=== PATIENT | male | born 1980 | race Caucasian/White ===

== ENCOUNTER 2020-04-23 16:56 | Outpatient (CLI) | payer OTHER, SELFPAY ==
[2020-04-23 17:48] LABS: Add Urine Microscopic? NO; Appearance Urine Clear (Clear); Bilirubin Urine Negative (Negative); Blood Urine Negative (Negative); Color Urine Colorless (Yellow); Glucose Urine UA Negative (Negative); Ketones Urine Negative (Negative); Leukocyte Esterase Ur Negative LEU/UL (Negative); Nitrate Urine Negative (Negative); Protein Urine Negative (Negative); Urobilinogen Urine Negative mg/dL (<2.0)
[2020-04-23 17:55] LABS: Specific Grav Ur 1.004 (1.001-1.035)
== END 2020-04-23 16:57 | disposition home or self-care (01) ==
LOC: ANHLAB 16:57
PROVIDERS: PCP Internal Medicine; Visit Provider Internal Medicine
DX: R30.0 Dysuria (principal)
CPT/HCPCS: 81003

== ENCOUNTER 2020-05-29 07:48 | Outpatient (CLI) | payer OTHER, SELFPAY ==
[2020-05-29 08:14] LABS: Add Urine Microscopic? NO; Appearance Urine Clear (Clear); Bilirubin Urine Negative (Negative); Blood Urine Negative (Negative); Color Urine Straw (Yellow); Glucose Urine UA Negative (Negative); Ketones Urine Negative (Negative); Leukocyte Esterase Ur Negative LEU/UL (Negative); Nitrate Urine Negative (Negative); Protein Urine Negative (Negative); Specific Grav Ur 1.011 (1.001-1.035); Urobilinogen Urine Negative mg/dL (<2.0)
[2020-05-29 08:23] LABS: Alanine Aminotransferase 25 U/L (4-50); Albumin Level 4.7 g/dL (3.5-5.1); Alkaline Phosphatase 48 U/L (38-126); Anion Gap 7 mmol/L (8-16); Aspartate Amino Transferase 26 U/L (17-59); Bilirubin,Total 0.5 mg/dL (0.2-1.3); Blood Urea Nitrogen 13 mg/dL (9-20); Calcium 9.4 mg/dL (8.4-10.2); Carbon Dioxide 31 mmol/L (22-30); Chloride 102 mmol/L (98-107); Cholesterol 199 mg/dL (0-200); Estimated Glomerular Filt Rate > 60; Glucose 101 mg/dL (75-110); HDL Direct 51 mg/dL; Potassium 4.4 mmol/L (3.4-5.0); Sodium 140 mmol/L (137-145); Triglycerides 98 mg/dL (<150)
[2020-05-29 08:33] LABS: LDL Cholesterol Direct 115 mg/dL
[2020-05-29 08:53] LABS: Prostate Specific Antigen 0.6 ng/mL (< OR = 4.0)
== END 2020-05-29 07:49 | disposition home or self-care (01) ==
PROVIDERS: PCP Internal Medicine; Visit Provider Internal Medicine
DX: R03.0 Elevated blood-pressure reading, without diagnosis of hypertension (principal); Z13.6 Encounter for screening for cardiovascular disorders; Z13.220 Encounter for screening for lipoid disorders; R35.1 Nocturia
CPT/HCPCS: 36415; 80053; 80061; 81003; 84153

== ENCOUNTER 2020-10-22 09:47 | Emergency (ER) | payer OTHER, SELFPAY ==
--- NOTE | ~2020-10-22 | XR_ITS ---
XR ankle RT min 3V 10/22/2020 10:12 INDICATION: Right ankle pain PROCEDURE: 4 views right ankle COMPARISON: No prior studies for comparison. FINDINGS: Fracture, dislocation or subluxation is not identified. The soft tissues appear within norm al limits. No foreign bodies are identified. IMPRESSION: 1: NO ACUTE BONE OR JOINT ABNORMALITY IDENTIFIED. Reviewed, dictated and finalized at location A.
--- NOTE | ~2020-10-22 | XR_ITS ---
XR foot RT min 3V 10/22/2020 10:12 INDICATION: Right foot pain PROCEDURE: 4 views right foot COMPARISON: No prior studies for comparison. FINDINGS: Fracture, dislocation or subluxation is not identified. Lisfranc joint intact. The soft tis sues appear within normal limits. No foreign bodies are identified. IMPRESSION: 1: NO ACUTE BONE OR JOINT ABNORMALITY IDENTIFIED. Reviewed, dictated and finalized at location A.
[2020-10-22 10:05] VITALS: BP 150/96; PULSE 89; RESP 18; TEMP 36.7; O2SAT 99
[2020-10-22 11:16] VITALS: BP 132/90; PULSE 77; RESP 18; O2SAT 98
--- NOTE | 2020-10-22 11:35 | ED.GENADULT ---
HPI - General Adult General Chief complaint: Extremity Injury, Lower Stated complaint: R FOOT INJURY Time Seen by Provider: 10/22/20 10:36 Source: patient and RN notes reviewed Mode of arrival: ambulatory Limitations: no limitations History of Present Illness HPI narrative: Patient is a 40-year-old male who presents with right ankle pain localized to the dorsal surface of the midfoot had misstepped off a ladder day prior and is continued to have aching pain worse with activity and weightbearing has been able to bear weight denies other injuries or complaints presents in no distress does not appear uncomfortable Related Data Allergies Allergy/AdvReac Type Severity Reaction Status Date / Time ciprofloxacin [From Cipro] Allergy Mild Blister Verified 10/22/20 10:33 codeine Allergy Unknown Vomiting Verified 10/22/20 10:33 Sulfa (Sulfonamide Allergy Swelling Verified 10/22/20 10:33 Antibiotics) of Lip/Tongue/Throat Review of Systems Review of Systems: All systems reviewed & are unremarkable except as noted in HPI and below PMFSH Social History Social History Smoking packs per day: 0 Smoking cigarettes per day: 0.0 Years smoked: 0 Smoking pack-years: 0.00 Smoking status: Never smoker Alcohol intake: current Drinks per week: 3 Gender identity (if verbalized by the patient): Male Sexual Orientation (if Verbalized by the Patient): Straight or Heterosexual Exam Narrative: Exam Narrative: GENERAL: Well-appearing, well-nourished, and in no acute distress. HEAD: Normocephalic, atraumatic. EYES: PERRLA and EOMI. ENT: Nares clear, no rhinorrhea or epistaxis. Mucous membranes moist. CHEST: Clear to auscultation. No respiratory distress. No wheezes rales or rhonchi HEART: Regular rate and rhythm. No murmur heard. Normal peripheral pulses. ABDOMEN: Soft, nontender, nondistended, normal active bowel sounds. EXTREMITIES: Normal range of motion. No edema. Tenderness over the dorsal right lateral midfoot no deformities noted remainder of ankle and foot nontender SKIN: Warm, dry, no rash. NEURO: No focal deficits. Alert and oriented x3. Neurovascularly intact PSYCH: Normal mood and affect. Course Course Emergency Course: Patient evaluated had x-rays which were unremarkable but he referred to specialist and primary care for further evaluation placed on crutches and Harish wrap provided with reasons to return Vital Signs Vital signs: Vital Signs Temperature 98.0 F 10/22/20 10:05 Pulse Rate 89 10/22/20 10:05 Respiratory Rate 18 10/22/20 10:05 Blood Pressure 150/96 H 10/22/20 10:05 Pulse Oximetry 99 10/22/20 10:05 Temperature 98.0 F 10/22/20 10:05 Pulse Rate 77 10/22/20 11:16 Respiratory Rate 18 10/22/20 11:16 Blood Pressure 132/90 10/22/20 11:16 Pulse Oximetry 98 10/22/20 11:16 Medical Decision Making MDM Narrative Medical decision making narrative: Patients injury or pain is consistent with musculoskeletal etiology. No signs of neurological or vascular compromise on exam. Compartments and tisues are soft without signs of compartment syndrome. Pain is felt appropriate for further evaluation on an outpatient basis. Vital Signs Vital Signs: Vital Signs Temperature 98.0 F 10/22/20 10:05 Pulse Rate 89 10/22/20 10:05 Respiratory Rate 18 10/22/20 10:05 Blood Pressure 150/96 H 10/22/20 10:05 Pulse Oximetry 99 10/22/20 10:05 Temperature 98.0 F 10/22/20 10:05 Pulse Rate 77 10/22/20 11:16 Respiratory Rate 18 10/22/20 11:16 Blood Pressure 132/90 10/22/20 11:16 Pulse Oximetry 98 10/22/20 11:16 Imaging Data Radiologist's impression: ITS Impressions Ankle X-Ray 10/22/20 10:19 IMPRESSION: 1: NO ACUTE BONE OR JOINT ABNORMALITY IDENTIFIED. Foot X-Ray 10/22/20 10:34 IMPRESSION: 1: NO ACUTE BONE OR JOINT ABNORMALITY IDENTIFIED. Discharge Plan Discharge Cl
== END 2020-10-22 11:48 | disposition home or self-care (01) ==
PROVIDERS: Emergency Provider Emergency Medicine; PCP Internal Medicine
DX: S93.401A Sprain of unspecified ligament of right ankle, initial encounter (principal); X50.9XXA Other and unspecified overexertion or strenuous movements or postures, initial encounter
CPT/HCPCS: 73610; 73630; 99283

== ENCOUNTER 2020-11-18 08:04 | Outpatient (CLI) | payer OTHER, SELFPAY ==
--- NOTE | ~2020-11-18 | MR_ITS ---
EXAMINATION: MR foot RT wo con DATE: 11/18/2020 09:18 INDICATION: Twisting injury post fall from ladder presenting with pain at the lateral right mid/hindf oot. TECHNIQUE: Magnetic resonance imaging (MRI) of the right mid/hindfoot and ankle was performed without intravenous contrast. Sequences included sagittal, coronal, and axial proton-density weighted fast s pin echo without and with fat saturation. COMPARISON: Radiograph dated 10/22/2020 FINDINGS: Medial ankle ligaments: Deep and superficial deltoid ligaments as well as the spring ligament are normal. Lateral ankle ligaments: The anterior and posterior inferior tibiofibular ligaments are normal. The anterior talofibular, calc aneofibular and posterior talofibular ligaments are normal. Tendons: Achilles tendon is normal. The peroneus longus tendon is normal. Mild tendinopathy and longitudinal s plit tear of the peroneus brevis tendon. The tibialis anterior and extensor hallucis longus and exten sor digitorum longus tendons are normal. The tibialis posterior, flexor digitorum longus and flexor h allucis longus tendons are normal. Plantar fascia: Plantar aponeurosis is normal. Bones/other: Marrow edema along the plantar aspect of the distal cuboid without evident fracture line consistent w ith bone contusion. Minimal likely degenerative subarticular edema versus cystic change at both sides of the articulation between the medial and mid cuneiforms and at the mid cuneiform along its articul ation with the lateral cuneiform. Fluid: Physiologic amount of fluid in the joint spaces. No abnormal fluid collections. IMPRESSION: 1. Marrow edema without fracture line at the plantar aspect of the cuboid suggesting a bone contusion . 2. Mild tendinopathy and longitudinal split tearing of the peroneus brevis tendon. 3. 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 Reviewed, dictated and finalized at location B. IMPRESSION: 1. Marrow edema without fracture line at the plantar aspect of the cuboid sugge sting a bone contusion. 2. Mild tendinopathy and longitudinal split tearing of the peroneus brevis tend on. 3. 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
== END 2020-11-18 08:05 | disposition home or self-care (01) ==
PROVIDERS: PCP Internal Medicine; Visit Provider Internal Medicine
DX: S99.929A Unspecified injury of unspecified foot, initial encounter (principal); X58.XXXA Exposure to other specified factors, initial encounter; M19.071 Primary osteoarthritis, right ankle and foot
CPT/HCPCS: 73718

== ENCOUNTER 2020-11-27 19:49 | Emergency (ER) | payer OTHER, SELFPAY ==
--- NOTE | 2020-11-27 19:56 | PC.NURSE ---
pt ambulatory with steady gait to intake desk. pt verbalized that he was going to try [facility] as the er waiting room looked too busy.
--- NOTE | 2020-11-27 22:21 | PC.NURSE ---
first call for a room, no answer
== END 2020-11-27 20:10 | disposition left against medical advice (07) ==
LOC: ANHED 20:03
DX: Z53.21 Procedure and treatment not carried out due to patient leaving prior to being seen by health care provider (principal)
CPT/HCPCS: 99199

== ENCOUNTER 2021-03-26 15:30 | Outpatient (RCR) | payer OTHER, SELFPAY ==
[2021-03-26] MEDS: ACETAMINOPHEN 325 MG TABLET 650 MG PO (15:42)
[2021-03-26] MEDS: diphenhydrAMINE HCl CAP 25 MG CAPSULE PO (15:44)
[2021-03-26] MEDS: FAMOTIDINE 20 MG TABLET PO (15:45)
[2021-03-26 15:46] VITALS: BP 139/81; PULSE 97; RESP 16; TEMP 36.4; O2SAT 100
[2021-03-26 16:54] VITALS: BP 122/72
== END 2021-03-26 17:00 ==
LOC: AMCINF 15:30
PROVIDERS: PCP Nurse Practitioner; Referring Provider Nurse Practitioner; Visit Provider Internal Medicine Hematology & Oncology
DX: U07.1 COVID-19 (principal)
CPT/HCPCS: A9270; M0243; Q0244

== ENCOUNTER 2021-04-08 08:01 | Outpatient (CLI) | payer OTHER, SELFPAY ==
[2021-04-08 09:04] LABS: Add Urine Microscopic? NO; Appearance Urine Clear (Clear); Bilirubin Urine Negative (Negative); Blood Urine Negative (Negative); Color Urine Yellow (Yellow); Glucose Urine UA Negative (Negative); Ketones Urine Negative (Negative); Leukocyte Esterase Ur Negative LEU/UL (Negative); Nitrate Urine Negative (Negative); Protein Urine Negative (Negative); Specific Grav Ur 1.005 (1.001-1.035); Urobilinogen Urine Negative mg/dL (<2.0)
== END 2021-04-08 08:02 | disposition home or self-care (01) ==
LOC: ANHLAB 08:04
PROVIDERS: PCP Nurse Practitioner; Visit Provider Internal Medicine
DX: R30.0 Dysuria (principal)
CPT/HCPCS: 81003

== ENCOUNTER 2021-06-17 12:27 | Outpatient (CLI) | payer OTHER, SELFPAY ==
--- NOTE | ~2021-06-17 | US_ITS ---
EXAMINATION:US venous doppler LE RT INDICATION:Right knee pain TECHNIQUE: Multiple grayscale, color flow and Doppler images of the right lower extremity deep venous systems were obtained and reviewed. COMPARISON:01/29/2016 FINDINGS: The common femoral, superficial femoral and popliteal veins demonstrate normal respiratory variation, augmentation and compressibility. Color flow is also seen within the posterior tibial, pe roneal, greater saphenous and profunda veins. IMPRESSION: 1: No lower extremity deep venous thrombosis. Reviewed, dictated and finalized at location A.
== END 2021-06-17 12:28 | disposition home or self-care (01) ==
PROVIDERS: PCP Nurse Practitioner; Visit Provider Internal Medicine Cardiovascular Disease
DX: M25.561 Pain in right knee (principal)
CPT/HCPCS: 93971

== ENCOUNTER 2021-10-01 07:07 | Outpatient (CLI) | payer OTHER, SELFPAY ==
[2021-10-01 08:52] LABS: Cholesterol 204 mg/dL (0-200); HDL Direct 57 mg/dL; Triglycerides 78 mg/dL (<150)
[2021-10-01 09:03] LABS: LDL Cholesterol Direct 98 mg/dL
== END 2021-10-01 07:08 | disposition home or self-care (01) ==
PROVIDERS: PCP Internal Medicine; Visit Provider Internal Medicine Cardiovascular Disease
DX: E78.5 Hyperlipidemia, unspecified (principal)
CPT/HCPCS: 36415; 80061

== ENCOUNTER 2021-11-29 07:41 | Outpatient (CLI) | payer OTHER, SELFPAY ==
[2021-11-29 08:18] LABS: Alanine Aminotransferase 25 U/L (6-50); Albumin Level 5.1 g/dL (3.5-5.1); Alkaline Phosphatase 48 U/L (38-126); Anion Gap 14 mmol/L (8-16); Aspartate Amino Transferase 25 U/L (17-59); Bilirubin,Total 0.5 mg/dL (0.2-1.3); Blood Urea Nitrogen 13 mg/dL (9-20); Calcium 9.3 mg/dL (8.4-10.2); Carbon Dioxide 32 mmol/L (22-30); Chloride 97 mmol/L (98-107); Cholesterol 192 mg/dL (0-200); Estimated Glomerular Filt Rate > 60; Glucose 107 mg/dL (65-110); HDL Direct 62 mg/dL; Potassium 4.8 mmol/L (3.4-5.0); Sodium 143 mmol/L (137-145); Triglycerides 73 mg/dL (<150)
[2021-11-29 08:29] LABS: LDL Cholesterol Direct 84 mg/dL
[2021-11-29 08:40] LABS: Vitamin D 25 Hydroxy 54.1 ng/mL
== END 2021-11-29 07:42 | disposition home or self-care (01) ==
LOC: ANHLAB 07:43
PROVIDERS: PCP Internal Medicine; Visit Provider Nurse Practitioner
DX: E78.5 Hyperlipidemia, unspecified (principal); E55.9 Vitamin D deficiency, unspecified
CPT/HCPCS: 36415; 80053; 80061; 82306

== ENCOUNTER 2021-12-23 12:19 | Outpatient (CLI) | payer OTHER, SELFPAY ==
[2021-12-23 12:51] LABS: Appearance Urine Clear (Clear); Bilirubin Urine Negative (Negative); Blood Urine Trace-intact (Negative); Color Urine Yellow (Yellow); Glucose Urine UA Negative (Negative); Ketones Urine Negative (Negative); Leukocyte Esterase Ur Negative LEU/UL (Negative); Nitrate Urine Negative (Negative); Protein Urine Negative (Negative); Specific Grav Ur 1.015 (1.001-1.035); Urobilinogen Urine 0.2 mg/dL (<2.0); pH Urine 6.5 (5.0-9.0)
[2021-12-23 12:57] LABS: Mucus Urine Rare /lpf; WBC Urine 0-3 /hpf
[2021-12-23 13:13] LABS: Add Urine Microscopic? YES
== END 2021-12-23 12:20 | disposition home or self-care (01) ==
LOC: ANHLAB 12:20
PROVIDERS: PCP Internal Medicine; Visit Provider Internal Medicine
DX: R30.0 Dysuria (principal)
CPT/HCPCS: 81001

== ENCOUNTER 2022-01-02 07:30 | Outpatient (CLI) | payer OTHER, SELFPAY ==
[2022-01-02 07:45] LABS: Basophils Absolute Auto 0.1 K/mm3 (0.0-0.1); Basophils Percent Auto 1.3 % (0.2-1.2); Eosinophils Absolute Auto 0.1 K/mm3 (0-0.3); Eosinophils Percent Auto 2.5 % (0-4.4); Hematocrit 42.2 % (42.0-52.0); Hemoglobin 14.5 g/dL (14.0-18.0); Immature Granulocyte Absolute 0.01 K/mm3 (0.00-0.031); Immature Granulocyte Percent A 0.2 % (0-0.5); Lymphocytes Absolute Auto 2.09 K/mm3 (0.9-3.2); Lymphocytes Percent Auto 44.2 % (18.3-44.2); Mean Corpuscular HGB Conc 34.4 g/dl (32-36); Mean Corpuscular Volume 93.2 fl (80-100); Mean Platelet Volume 8.9 fl (7.4-10.4); Monocytes Absolute Auto 0.3 K/mm3 (0.1-0.6); Monocytes Percent Auto 6.3 % (2.6-8.5); Neutrophils Absolute Auto 2.2 K/mm3 (1.3-6.7); Neutrophils Percent Auto 45.5 % (45.5-73.1); Platelet Count Result 315 k/mm3 (150-375); Red Blood Count 4.53 M/mm3 (4.6-6.20); Red Cell Distribution Width 11.8 % (11.5-14.5); White Blood Count 4.7 K/mm3 (4.5-10.0)
[2022-01-02 08:35] LABS: Thyroid Stimulating Hormone 0.899 uIU/mL (0.465-4.680)
== END 2022-01-02 07:31 | disposition home or self-care (01) ==
LOC: ANHLAB 07:32
PROVIDERS: PCP Internal Medicine; Visit Provider Internal Medicine
DX: R63.4 Abnormal weight loss (principal)
CPT/HCPCS: 36415; 84443; 85025

== ENCOUNTER 2022-05-12 07:45 | Outpatient (CLI) | payer OTHER, SELFPAY ==
[2022-05-12 08:43] LABS: Thyroid Stimulating Hormone 0.516 uIU/mL (0.465-4.680)
[2022-05-12 09:24] LABS: Free T4 Free Thyroxine 1.22 ng/mL (0.78-2.19)
[2022-05-16 04:26] LABS: Thyroid Peroxidase Antibodies <1 IU/mL (<9)
== END 2022-05-12 07:46 | disposition home or self-care (01) ==
LOC: ANHLAB 07:46
PROVIDERS: PCP Internal Medicine; Visit Provider Nurse Practitioner
DX: R00.2 Palpitations (principal)
CPT/HCPCS: 36415; 84439; 84443; 86376

== ENCOUNTER 2023-02-22 08:44 | Outpatient (CLI) | payer OTHER, SELFPAY ==
--- NOTE | ~2023-02-22 | XR_ITS ---
Right Knee Technique: AP, lateral, and sunrise views were obtained. Clinical History: Pain Findings: No fracture or dislocation is seen. Osseous alignment is anatomic. Joint spaces are preserv ed without degenerative or erosive change. Soft tissues are unremarkable. No joint effusion is seen. Impression: Unremarkable right knee radiographs. Reviewed, dictated and finalized at location . R INSTALLATION SUPERVISOR Impression: Unremarkable right knee radiographs.
--- NOTE | ~2023-02-22 | XR_ITS ---
Left foot Technique: AP, oblique, and lateral views were obtained. Clinical History: Fifth digit injury Findings: No acute fracture or dislocation is seen. Osseous alignment is anatomic. Joint spaces are p reserved without erosive or degenerative change. Soft tissues are unremarkable. Impression: Unremarkable left foot radiographs. Reviewed, dictated and finalized at [facility]. TRAINER Impression: Unremarkable left foot radiographs.
== END 2023-02-22 08:45 | disposition home or self-care (01) ==
LOC: ANHIMG 08:47
PROVIDERS: PCP Nurse Practitioner Family; Visit Provider Nurse Practitioner Family
DX: S99.922A Unspecified injury of left foot, initial encounter (principal); S89.91XA Unspecified injury of right lower leg, initial encounter; X58.XXXA Exposure to other specified factors, initial encounter
CPT/HCPCS: 73562; 73620

== ENCOUNTER 2023-09-15 08:42 | Outpatient (CLI) | payer OTHER, SELFPAY ==
[2023-09-15 09:20] LABS: Hematocrit 42.5 % (42.0-52.0); Hemoglobin 14.7 g/dL (14.0-18.0); Mean Corpuscular HGB Conc 34.6 g/dl (32-36); Mean Corpuscular Hemoglobin 31.7 pg (26-34); Mean Corpuscular Volume 91.6 fl (80-100); Mean Platelet Volume 9.1 fl (7.4-10.4); Platelet Count Result 285 k/mm3 (150-375); Red Blood Count 4.64 M/mm3 (4.6-6.20); Red Cell Distribution Width 11.6 % (11.5-14.5)
[2023-09-15 09:35] LABS: Alanine Aminotransferase 21 U/L (6-50); Albumin Level 4.9 g/dL (3.5-5.1); Alkaline Phosphatase 49 U/L (38-126); Anion Gap 6 mmol/L (4-12); Aspartate Amino Transferase 23 U/L (17-59); Bilirubin,Total 0.6 mg/dL (0.2-1.3); Blood Urea Nitrogen 15 mg/dL (9-20); Calcium 9.5 mg/dL (8.4-10.2); Carbon Dioxide 31 mmol/L (22-30); Chloride 104 mmol/L (98-107); Cholesterol 197 mg/dL (0-200); Estimated Glomerular Filt Rate > 60; Glucose 92 mg/dL (65-110); HDL Direct 62 mg/dL; Potassium 4.8 mmol/L (3.4-5.0); Sodium 141 mmol/L (137-145); Triglycerides 89 mg/dL (<150)
[2023-09-15 09:46] LABS: LDL Cholesterol Direct 118 mg/dL
[2023-09-15 09:57] LABS: Vitamin D 25 Hydroxy 51.9 ng/mL
== END 2023-09-15 08:43 | disposition home or self-care (01) ==
LOC: ANHLAB 08:43
PROVIDERS: PCP Nurse Practitioner Family; Visit Provider Nurse Practitioner Family
DX: E55.9 Vitamin D deficiency, unspecified (principal); Z13.0 Encounter for screening for diseases of the blood and blood-forming organs and certain disorders involving the immune mechanism; Z13.220 Encounter for screening for lipoid disorders; Z13.228 Encounter for screening for other metabolic disorders
CPT/HCPCS: 36415; 80053; 80061; 82306; 85027

== ENCOUNTER 2024-09-14 07:51 | Outpatient (CLI) | payer OTHER, SELFPAY ==
--- OUTSIDE RECORDS SUMMARY | 2024-09-14 07:56 | XMS_ITS | Clinical Summary ---
Author Organization [facility] Address [address] [place] [id number] Phone Care Team Providers Care Manufacturing Sales Representative Name Role Phone Guru Davenport MD Primary Care Provider [phone] Social History Tobacco Use Types Packs/Day Years Used Date Smoking Tobacco: Never Assessed Sex and Gender Information Value Date Recorded Sex Assigned at Not on file Legal Sex Male 8:24 PM [employer]GE Gender Identity Not on file Sexual Orientation Not on file Plan of Treatment Health Maintenance Due Date Last Done Comments DTAP/TDAP/TD VACCINES (1 - Tdap) 1997 HEPATITIS B VACCINES (1 of 3 - 19+ 3-dose series) 1997 COLORECTAL SCREENING 09/03/2023 Colorectal Cancer Screening 09/03/2023 FIT-DNA Q 3 years 09/03/2023 FIT/FOBT Q 1 year 09/03/2023 Flex Sig/CT Colonography Q 5 years 09/03/2023 INFLUENZA VACCINE (#1) 2023 HPV VACCINES Aged Out No longer eligi ble based on patient's age to complete this topic Insurance [employer] PPO Care Teams Manufacturing Sales Representative Relationship Specialty Start Date End Date Guru Davenport MD PCP - General Internal Medicine 02/01/17
--- OUTSIDE RECORDS SUMMARY | 2024-09-14 07:56 | XMS_ITS | Clinical Summary ---
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 Gender Identity Not on file Sexual Orientation Not on file Plan of Treatment Health Maintenance Due Date Last Done Comments Hepatitis C Virus (HCV) Screening 1978 Hepatitis B Immunization (1 of 3 - 19+ 3-dose series) 1997 Colonoscopy 09/03/2023 Colorectal Cancer Screening 09/03/2023 Influenza Immunization (#1) 2023 SARS-COV-2 Immunization ( season) 2023 Respiratory Syncytial Virus (RSV) Immunization (Adult) (1 - 1-dose 75+ series) 2053 DTaP/Tdap/Td Immunization Discontinued 07/13/2018 TdaP Immunization Completed 07/13/2018 Meningococcal Immunization (ACWY) Aged Out No longer eligible based on patient's age to complete this topic Pneumococcal Immunization Combined Aged Out No longer eligible b ased on patient's age to complete this topic Rotavirus Immunization Aged Out No lo nger eligible based on patient's age to complete this topic
--- OUTSIDE RECORDS SUMMARY | 2024-09-14 07:56 | XMS_ITS | Clinical Summary ---
Author Organization [facility] Address [address] [place] [address] Care Team Providers Care Carton Gluing Machine Operator Name Role Phone Guru Davenport MD Primary Care Provider [phone] Source Comments [facility],non-owned Affiliates and Associated Physician Practices is amultiple site organization consisting of ambulatory clinics and hospital sitesin [place], [place], [place] and [place]. This disclosure is being madepursuant to the Care Everywhere program and may not contain all information available regarding this patient. Last updated 17.[facility] Allergies Active Allergy Reactions Criticality Noted Date Comments Codeine Nausea and/or Vomiting Low 10/23/2016 Sulfa Drugs Rash Medium 05/31/2017 Medications * Be aware that medications may not be up to date on this document. Alwaysverify current medications with the patient. Multiple Vitamins-Minera ls (MULTIVITAMIN ADULT PO) Active clindamycin (CLEOCIN) 1 % lotion Apply to affected area 2 times daily 60 mL 2 9 Active clobetasol (TEMOVATE) 0.05 % cream Apply to affected area on trunk and extremities BID. 30 day supply. 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 Gender Identity Not on file Sexual Orientation Not on file Last Filed Vital Signs Vital Sign Reading Time Taken Comments Blood Pressure 126/84 05/31/2017 9:51 AM TAX COMMISSIONER Pulse 84 05/31/2017 9:51 AM TAX COMMISSIONER Temperature 36.7 C (98 F) 05/31/2017 9:51 AM TAX COMMISSIONER Respiratory Rate - - Oxygen Saturation 97% 05/31/2017 9:51 AM TAX COMMISSIONER Inhaled Oxygen Concentration - - Weight 90.7 kg (200 lb) 05/31/2017 9:51 AM TAX COMMISSIONER Height 175.3 cm (5' 9) 05/31/2017 9:51 AM TAX COMMISSIONER Body Mass Index 29.53 05/31/2017 9:51 AM TAX COMMISSIONER Plan of Treatment Health Maintenance Due Date Last Done Comments COLOGUARD (AGES 45-75) - COL ON CA SCREENING 1978 COLON MONITORING 1978 COLONOSCOPY - COLON CA SCREENING 1978 CT COLONOGRAPHY - COLON CA SCREENING 1978 Colorectal Cancer Screening 1978 FIT - COLON CA SCREENING 1978 FLEX SIG - COLON CA SCREENING 1978 LIPID TESTING 1978 HIV SCREENING 1993 HEPATITIS C SCREENING 08/28/1996 HEPATITIS B VACCINE (1 of 3 - 19+ 3-dose series) 1997 COVID-19 VACCINE ( - 2023-2 5 season) 2023 DEPRESSION SCREENING 03/29/2024 INFLUENZA VACCINE (Season Ended) 2024 DTAP/TDAP/TD VACCINES (2 - T d or Tdap) 07/13/2028 07/13/2018 ZOSTER VACCINE (1 of 2) 2028 HIB VACCINE Aged Out No longer eligi ble based on patient's age to complete this topic HPV VACCINE Aged Out No longer eligi ble based on patient's age to complete this topic MENINGOCOCCAL (Group B) VACC INE SHARED DECISION-MAKING Aged Out No longer eligibl e based on patient's age to complete this topic MENINGOCOCCAL GROUPS A/C/Y/W VACCINE Aged Out No longer eligible b ased on patient's age to complete this topic PNEUMOCOCCAL VACCINE Aged Out No long er eligible based on patient's age to complete this topic Insurance [employer] Care Teams Carton Gluing Machine Operator Relationship Specialty Start Date End Date Guru Davenport MD [address] [place] [address] PCP - General Internal Medicine 05/31/17
--- OUTSIDE RECORDS SUMMARY | 2024-09-14 07:56 | XMS_ITS | CONTINUITY OF CARE DOCUMENT ---
Author Name erich jung Address Unknown Organization [facility] Address [address] [place] [address] Phone [phone] Care Team Providers Care Medical Sales Specialist Name Role Phone Franco Mueller MD Unavailable [phone] ARIANE MCFADDEN DO Unavailable [phone] ARIANE MCFADDEN DO Unavailable [phone] INSURANCE PROVIDERS Payer name Policy type / Coverage type [place] red libertarian ID [employer] PPO Other [id number]
[2024-09-14 08:43] LABS: Hematocrit 43.1 % (42.0-52.0); Hemoglobin 14.5 g/dL (14.0-18.0); Mean Corpuscular HGB Conc 33.6 g/dl (32-36); Mean Corpuscular Hemoglobin 30.5 pg (26-34); Mean Corpuscular Volume 90.5 fl (80-100); Mean Platelet Volume 8.9 fl (7.4-10.4); Platelet Count Result 308 k/mm3 (150-375); Red Blood Count 4.76 M/mm3 (4.6-6.20); Red Cell Distribution Width 11.6 % (11.5-14.5)
[2024-09-14 08:55] LABS: Alanine Aminotransferase 27 U/L (6-50); Albumin Level 4.7 g/dL (3.5-5.1); Alkaline Phosphatase 46 U/L (38-126); Anion Gap 7 mmol/L (4-12); Aspartate Amino Transferase 29 U/L (17-59); Bilirubin,Total 0.4 mg/dL (0.2-1.3); Blood Urea Nitrogen 14 mg/dL (9-20); Calcium 9.5 mg/dL (8.4-10.2); Carbon Dioxide 27 mmol/L (22-30); Chloride 104 mmol/L (98-107); Cholesterol 253 mg/dL (0-200); Estimated Glomerular Filt Rate > 60; Glucose 105 mg/dL (65-110); HDL Direct 73 mg/dL; Potassium 4.2 mmol/L (3.4-5.0); Sodium 138 mmol/L (137-145); Total Protein 7.7 g/dL (6.3-8.2); Triglycerides 70 mg/dL (<150)
[2024-09-14 09:07] LABS: LDL Cholesterol Direct 128 mg/dL
[2024-09-14 09:22] LABS: Hemoglobin A1C 5.4 % (<5.7)
== END 2024-09-14 07:52 | disposition home or self-care (01) ==
LOC: ANHLAB 07:53
PROVIDERS: PCP Nurse Practitioner Family; Visit Provider Nurse Practitioner Family
DX: Z13.1 Encounter for screening for diabetes mellitus (principal); Z00.00 Encounter for general adult medical examination without abnormal findings; E78.00 Pure hypercholesterolemia, unspecified; Z13.228 Encounter for screening for other metabolic disorders; Z13.0 Encounter for screening for diseases of the blood and blood-forming organs and certain disorders involving the immune mechanism
CPT/HCPCS: 36415; 80053; 80061; 83036; 85027